=== PATIENT | female | born 2000 | race Caucasian/White ===

== ENCOUNTER 2021-07-07 06:34 | Day surgery (SDC) | payer BC ==
[2021-07-07] MEDS ORDERED: ACETAMINOPHEN 500 MG TAB PO ONE (07:05)
[2021-07-07] MEDS ORDERED: CELECOXIB 100 MG CAPSULE PO ONE (07:05)
[2021-07-07] MEDS ORDERED: Ringers Lactate 1,000 ML IV ONE (07:07)
[2021-07-07] MEDS ORDERED: propofoL 200 MG/20 ML VIAL IV ONE (07:23)
[2021-07-07] MEDS ORDERED: MIDAZOLAM HCL 2 MG/2 ML INJ ONE (07:23)
[2021-07-07] MEDS ORDERED: FENTANYL CITR 100 MCG/2 ML ONE (07:23)
[2021-07-07] MEDS ORDERED: dexAMETHasone 10 MG/ML VIAL ONE (07:23)
[2021-07-07] MEDS ORDERED: ROCURONIUM 50 MG/5 ML VIAL IV ONE (07:24)
[2021-07-07] MEDS ORDERED: ONDANSETRON 4 MG/2 ML VIAL ONE ×2 (07:24→10:49)
[2021-07-07] MEDS ORDERED: LIDOCAINE 2% MPF 5 ML VIAL ONE (07:24)
[2021-07-07] MEDS ORDERED: ACETAMINOPHEN 500 MG TAB ONE (07:24)
[2021-07-07] MEDS ORDERED: CELECOXIB 100 MG CAPSULE ONE (07:24)
[2021-07-07] MEDS ORDERED: EPINEPHRINE/PF 1 MG/ML AMP ONE (07:41)
--- NOTE | 2021-07-07 08:49 | P.OP ---
Pre-Op Diagnosis: Chronic tonsillitis Post-Op Diagnosis: Other (Chronic tonsillitis with adenoiditis) Procedure: Adenotonsillectomy Anesthesia: Other (GA via ETT) Fluids/ Blood products: Other (Crystalloid 500ml) Estimated blood loss: Other (5ml) Specimen: Other (bilateral tonsils) Findings: debris within adenoid folds Complications: None Implants: None Indication: Patient persistent issues in spite of good medical management. Details of Operation: The patient was brought to the operating room and placed under general anesthesia via endotracheal tube. The head of bed was turned 90 degrees. A Shoulder roll was placed and the neck extended. A head drape was applied. The McIvor mouth gag was placed and suspended from the Dinh stand. The oxygen concentrate was confirmed with the systems designer and was less than forty percent. Weight-based dexamethasone was administered by the systems designer. The soft palate was palpated and there was no submucous cleft. A red rubber catheter was placed in the nose and secured to retract the soft palate. The tonsils were noted to be large and chronically inflammed with left liths. The left tonsil was grasped with a straight Allis clamp. The bovie electocautery was used to incision the mucosa over the anterior pillar and identify the tonsillar capsule. The tonsil was dissected using cautery and blunt dissection until free from soft tissue attachments. A tonsil ball was placed to aid hemostasis. Epi-soaked sponge applied for 5 minutes with continued oozing in the mid fossa. The area of bleeding was clamped and ligated with 4-0 Vicryl endoloop. The right tonsil was removed in a similar manner. No suture was required on the right side. The laryngeal mirror was used to visualize the nasopharynx. The adenoid size was small to medium but inflamed with debris within the folds. The adenoids were removed using suction cautery. Hemostasis was achieved using packing and cautery as needed. Blood loss was minimal. All packing was removed. The tonsillar fossae were injected with 0.5% Marcaine. A total of 3 mL was used. A Salum sump orogastric tube was used to decompress the stomach. The red rubber catheter was removed and used to suction the nasopharynx and nasal cavity. The mouth gag was removed; there was no evidence of injury to the lips, teeth or tongue. The mandible was mobile. Disposition: The patient was then awakened from anesthesia and taken to the recovery room in stable condition.
[2021-07-07] MEDS: HYDROMORPHONE HCL 1 MG/ML INJ ONE ×2 (09:01→09:09)
[2021-07-07] MEDS ORDERED: MEPERIDINE HCL 25 MG/ML SYR ONE (09:26)
[2021-07-07] MEDS ORDERED: HYDROCOD 2.5mg-ACETAMIN 108mg/5mL Soln ONE (10:15)
[2021-07-07 10:18] VITALS: O2SAT 98
[2021-07-07 10:30] VITALS: BP 128/82; TEMP 97.5
== END 2021-07-07 10:27 | disposition home or self-care (01) ==
LOC: OR 06:34
PROVIDERS: ATTEND Otolaryngology
PROC: 0CTQXZZ Resection of Adenoids, External Approach (ICD-10-PCS; 2021-07-07)
PROC: 0CTPXZZ Resection of Tonsils, External Approach (ICD-10-PCS; principal; 2021-07-07 07:30)
DX: J35.01 Chronic tonsillitis (principal); Z20.822 Contact with and (suspected) exposure to COVID-19
CPT/HCPCS: 36415; 84703; 88304; 42821; U0002; J0171; J2250; J3010; J1100; J2175; J1170; J7120; J2405; J2704

== ENCOUNTER 2021-11-24 07:21 | Day surgery (SDC) | payer BC ==
[2021-11-24] MEDS ORDERED: Ringers Lactate 1,000 ML IV ONE (07:56)
[2021-11-24] MEDS ORDERED: MIDAZOLAM HCL 2 MG/2 ML INJ ONE ×2 (07:56→09:27)
[2021-11-24] MEDS ORDERED: CEFAZOLIN SODIUM 1 GM/VIAL ONE (08:01)
[2021-11-24] MEDS ORDERED: NA CHLORIDE 0.9% 0 ML ONE (08:02)
[2021-11-24] MEDS ORDERED: propofoL 200 MG/20 ML VIAL IV ONE (09:27)
[2021-11-24] MEDS ORDERED: LIDOCAINE 1% MPF 5 ML VIAL ONE (09:27)
[2021-11-24] MEDS ORDERED: BUPIVACAINE 0.5% PF 10 ML VIAL ONE ×2 (09:27→10:02)
[2021-11-24] MEDS ORDERED: FENTANYL CITR 100 MCG/2 ML ONE (09:27)
[2021-11-24] MEDS ORDERED: dexAMETHasone 10 MG/ML VIAL ONE (09:34)
[2021-11-24] MEDS ORDERED: ONDANSETRON 4 MG/2 ML VIAL ONE ×2 (09:34→10:00)
[2021-11-24] MEDS ORDERED: KETOROLAC 30 MG/ML INJ ONE (09:34)
[2021-11-24] MEDS ORDERED: MEPERIDINE HCL 25 MG/ML SYR ONE (10:00)
[2021-11-24] MEDS ORDERED: HYDROCODONE/APAP 7.5/325 MG TAB ONE (11:04)
[2021-11-24 14:03] VITALS: BP 124/64; TEMP 97.8
[2021-11-24 14:20] VITALS: O2SAT 100
--- NOTE | 2021-11-24 23:08 | OP ---
Date of Procedure: 11/24/2021 Surgeon: Naveen Gunderson MD Webbing Weaver: Low Valdez, surgical services tech certified. Preoperative Diagnosis: Right groin abscess. Postoperative Diagnosis: Right groin abscess. Procedure: Incision, drainage and debridement right groin abscess. Estimated Blood Loss: Minimal. Specimen: Pus and tissue in the abscess cavity for cytology. Findings: As above. Anesthesia: General. Complications: None. The patient tolerated the procedure and was in stable condition taken to [facility] in good general condition. Operative Note: The patient was brought to the OR and placed in supine position. General anesthesia began. The patient was prepped and draped in the usual sterile fashion. Marcaine 0.5% was infiltra claire locally. A 15-blade was used to make a 2.5- to 3-cm incision in the right groin. Subcutaneous t issue divided, and deep in the subcutaneous tissue, a large amount of purulence encountered. Culture s done and pus evacuated, loculations broken up. Wound irrigated. Bleeding controlled with cautery. A curette was used to debride the abscess cavity and cells sent for cytology. Wound irrigated. Bl eeding controlled with cautery, and wet-to-dry normal saline dressing change applied. The patient to lerated the procedure in stable condition, taken to Recovery in good general condition. Discharge Note: The patient going to Day Surgery and then home when stable. Disposition: Home. Condition: Stable. Discharge Instructions: Resume home medications and diet. Activity as tolerated. No heavy lifting. Remove outer dressing in a.m. wet-to-dry normal saline dressing changes daily. The patient has ant ibiotics, pain medicine, and home health for dressing changes arranged from my office already. The p atient is to follow up with me in 10 days, call for appointment. /ANNY Voice ID: [id number] Report ID: [id number]
== END 2021-11-24 11:31 | disposition home or self-care (01) ==
LOC: OR 07:21
PROVIDERS: ATTEND Surgery
PROC: 0H9AXZZ Drainage of Inguinal Skin, External Approach (ICD-10-PCS; principal; 2021-11-24 09:00)
DX: L02.214 Cutaneous abscess of groin (principal); Z20.822 Contact with and (suspected) exposure to COVID-19
CPT/HCPCS: 87070; 87205 ×2; 81025; 88304; 87075; 10060; U0003; J2704; J2250 ×2; J3010; J1100; J2175; J7120; J2405 ×2; J0690